=== PATIENT | female | born 2000 | race Native Hawaiian/Other Pacific Islander ===

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

== ENCOUNTER 2022-10-04 10:12 | Emergency (ER) | payer OTHER ==
[~2022-10-04] VITALS: Ht 162.6 cm; Wt 85.3 kg
[2022-10-04 10:31] VITALS: BP 111/66; TEMP 97.5
[2022-10-04 11:33] LABS: PLATELET COUNT 232 K/uL (152-353)
[2022-10-04 12:04] LABS: POTASSIUM 4.3 mmol/L (3.6-5.2)
== END 2022-10-04 13:58 | disposition home or self-care (01) ==
LOC: ED 10:12
PROVIDERS: Emergency Medicine
DX: O21.0 Mild hyperemesis gravidarum (principal)
CPT/HCPCS: 36415; 80053; 81002; 84702; 85027; 96365; 96374; 99284; J2405